=== PATIENT | female | born 1995 ===

== ENCOUNTER 2017-04-24 18:26 | Emergency (ER) | payer OTHER ==
[2017-04-24 18:27] VITALS: BMI 25.7
[2017-04-24 18:34] VITALS: RESP 18
--- NOTE | 2017-04-24 18:50 | C.PDOC ---
Time Seen by Provider: 04/24/17 18:41 Chief Complaint (Nursing): Abnormal Skin Integrity Past Medical History Vital Signs: Last Vital Signs Temp 101.2 F H 04/24/17 18:30 Pulse 100 H 04/24/17 18:30 Resp 18 04/24/17 18:30 BP 115/78 04/24/17 18:30 Pulse Ox 100 04/24/17 18:30 - Social History Hx Alcohol Use: No Hx Substance Use: No ED Course And Treatment O2 Sat by Pulse Oximetry: 100 Pulse Ox Interpretation: Normal Progress Note: At 18:50, Podiatry resident called, will see pt in ED. reqeusted xray of Left foot. Disposition - Disposition Forms: [employer] (Montenegrin)
--- NOTE | 2017-04-24 18:52 | C.PDOC ---
History Of Present Illness A 22 year old female, who denies any significant past medial history, presents to the emergency department 4 days after stepping on a sea urchin with her left foot while on vacation in [place]. The patient notes she had spines that were stuck in her left big toe, only 3 spines remain. The patient also reports to feeling sick with nasal congestion, sore throat, and a fever, for the last two days. The patient denies lethargy, drooling, dysphagia, dyspnea, SON, throat tightness, abd. pain, N/V/D, UTI sx, denies swelling to her left foot, wound draining, weakness, sensory or vascular deficits. Ambulate to ED for evaluation, not in any apparent distress. Time Seen by Provider: 04/24/17 18:41 Chief Complaint (Nursing): Abnormal Skin Integrity History Per: Patient History/Exam Limitations: no limitations Onset/Duration Of Symptoms: Days (x 4 days ) Past Medical History Vital Signs: Last Vital Signs Temp 98.4 F 04/24/17 20:59 Pulse 76 04/24/17 20:59 Resp 18 04/24/17 20:59 BP 104/67 04/24/17 20:59 Pulse Ox 99 04/24/17 20:59 Family History: States: No Known Family Hx - Social History Hx Alcohol Use: No Hx Substance Use: No Review Of Systems Except As Marked, All Systems Reviewed And Found Negative. Constitutional: Positive for: Fever ENT: Positive for: Nose Congestion, Throat Pain Cardiovascular: Negative for: Chest Pain Respiratory: Negative for: Shortness of Breath Gastrointestinal: Negative for: Nausea, Abdominal Pain Skin: Positive for: Other (3 spines from sea urchin ) Physical Exam - Physical Exam Appears: Well, Non-toxic, No Acute Distress Skin: Normal Color, Warm, Dry Eye(s): bilateral: PERRL Nose: No Flaring, No Discharge Oral Mucosa: Moist Tongue: Normal Appearing Lips: Normal Appearing Throat: Erythema (pharyngeal erythema with mild edema; no exudate), No Exudate, No Drooling Neck: Supple Lymphatic: Adenopathy (mild tenderness submandibular) Cardiovascular: Rhythm Regular Respiratory: No Decreased Breath Sounds, No Accessory Muscle Use, No Rales, No Rhonchi, No Stridor, No Wheezing Gastrointestinal/Abdominal: Soft, No Tenderness, No Distention, No Guarding Back: No CVA Tenderness Extremity: Tenderness (mild tenderness over plantar aspect Left 1st distal phalanx, small punctate FB#3 noted. No edema, n oerythema, no wound draining.), Capillary Refill (less than 2sec to Left foot), No Deformity, No Swelling Neurological/Psych: Oriented x3, Normal Speech, Normal Motor, Normal Sensation, Normal Reflexes ED Course And Treatment - Laboratory Results Result Diagrams: 04/24/17 20:18 04/24/17 20:18 Lab Interpretation: No Acute Changes O2 Sat by Pulse Oximetry: 100 Pulse Ox Interpretation: Normal Medical Decision Making Medical Decision Making: Treatment Plan: -- Tylenol, Cleocin, Prednisone -- test -- Left Foot Radiology -- Urinalysis Progress Notes: At 18:50, Podiatry resident called, will see pt in ED. Requested xray of Left foot. AT 20:05, [facility] resident arrived and pt was evaluated. Case discussed with [facility] -on-call and discharge with outpt f/u recommend at present time. Pt was OBS in ED for 2.5 hours and reports moderate improvement in sx. Afebrile, hemodynamicaly stable. non-toxic.Tolerate Po well in ED. PulsEOx 100% RA ENT: exam c/w acute pharyngitis. uvula midline, no edema. neck: Supple, (-) JVD. Lungs: CTA B/L, BS equal B/L. CVS: (+)S1S2, reg. Abd: benign. Skin: Left foot big toe exam c/w FB, no evidence of cellulites or abscess. FAROM of LLE, no neurovascular deficits. Pt advised on course of ds. ref. to f/u with [facility] in 1-2 days for re-evaluation. Return to ED if any worsening or new changes. Disposition Counseled Patient/Family Regarding: Studies Performed, Diagnosis, Need For Followup, Rx Given - Disposition Referrals: [facility] [Outside] Disposition: HOME/ ROUTINE Disposition Time: 20:39 Condition: STABLE Additional Instructions: Encourage fluids Take medication as prescribed Follow up with [facility] in Clinic Tuesday AM ( [place], [facility]) and Tuesday ( [place]) in 2-3 days for re-evaluation. Return to ED if any worsening or new changes. Prescriptions: Clindamycin [Cleocin] 300 mg PO Q6 #28 cap Prednisone [Deltasone] 20 mg PO DAILY #3 tablet Instructions: Soft Tissue Foreign Body (ED), Pharyngitis (ED) Forms: [employer] (Croatian) - Clinical Impression Clinical Impression: Pharyngitis, Foreign body (FB) in soft tissue - Scribe Statement The provider has reviewed the documentation as recorded by the Scribe Nayla Fuentes All medical record entries made by the Scribe were at my direction and personally dictated by me. I have reviewed the chart and agree that the record accurately reflects my personal performance of the history, physical exam, medical decision making, and the department course for this patient. I have also personally directed, reviewed, and agree with the discharge instructions and disposition.
[2017-04-24 19:07] LABS: RBC URINE 1 /hpf (0-3); URINE BILIRUBIN NEGATIVE (NEGATIVE); URINE BLOOD NEGATIVE (NEGATIVE); URINE COLOR Yellow (YELLOW); URINE GLUCOSE (UA) NORMAL (Normal); URINE KETONE 1+ mg/dL (NEGATIVE); URINE LEUKOCYTE ESTERASE NEG Leu/uL (Negative); URINE PROTEIN NEGATIVE (NEGATIVE); WBC URINE 1 /hpf (0-5)
[2017-04-24] MEDS ORDERED: Sodium Chloride 0.9% 1,000 ML IV ONE (19:44)
[2017-04-24 20:26] LABS: BASO % 0.3 % (0.0-2.0); EOS % 0.1 % (0.0-4.0); HEMATOCRIT 42.2 % (34.0-47.0); LYMPH # 0.7 K/uL (1.0-4.3); LYMPH % 8.9 % (20.0-40.0); MEAN CELL VOLUME 92.2 fL (81.0-99.0); MEAN CORPUSCULAR HEMOGLOBIN 31.8 pg (27.0-31.0); MEAN CORPUSCULAR HGB CONC 34.4 g/dL (33.0-37.0); MEAN PLATELET VOLUME 7.5 fL (7.2-11.7); MONO # 0.8 K/uL (0.0-0.8); MONO % 10.7 % (0.0-10.0); PLATELET COUNT 223 K/uL (130-400); RED CELL DISTRIBUTION WIDTH 12.9 % (11.5-14.5); WHITE BLOOD COUNT 7.3 K/uL (4.8-10.8)
[2017-04-24 20:36] LABS: BLOOD UREA NITROGEN 9 mg/dL (7-17); CALCIUM 9.4 mg/dl (8.6-10.4); CARBON DIOXIDE 25 mmol/L (22-30); CHLORIDE 95 mmol/L (98-107); GFR AFRICAN-AMERICAN > 60; GLUCOSE,RANDOM 94 mg/dL (65-105); POTASSIUM 3.7 mmol/L (3.6-5.2); SODIUM 135 mmol/L (132-148)
[2017-04-24 20:59] VITALS: BP 104/67; PULSE 76; TEMP 98.4
[2017-04-24 20:59] LABS: LARGE PLATELETS PRESENT; NEUTROPHIL 72 % (50-75); TOTAL CELLS COUNTED 100
--- NOTE | 2017-04-24 21:44 | CP.PCM.CON ---
History of Present Illness - History of Present Illness History of Present Illness: 22 y/o female who denies any significant past medical history seen in ED for pain and concern for her left big toe. Patient states she stepped on a sea urchin 5 days ago in [place] and got some of the spines stuck in her toe. Patient removed some of them but others were too deep. Patient admits that the toe had some swelling and bleeding at the time but has since subsided. Patient has been experiencing mild constitutional symptoms such as fever and chills today, and is also feeling cold-like symptoms for 2 days including sore throat and congestion. Patient states these symptoms are consistent with her common cold symptoms seasonally. Patient admits to vomiting once yesterday. Patient denies any nausea or shortness of breath. Patient has not noticed any breaks in the skin or any drainage from the toe. Patient states she has a little pain when she presses off on the toe or presses hard down on it. Review of Systems - Review of Systems All systems: reviewed and no additional remarkable complaints except (per HPI) Past Patient History - Infectious Disease Hx of Infectious Diseases: None - Past Social History Smoking Status: Never Smoked - PSYCHIATRIC Hx Substance Use: No - SURGICAL HISTORY Hx Surgeries: No - ANESTHESIA Hx Anesthesia: No Meds Home Medications: Home Medication List Medication Instructions Recorded Confirmed Type Clindamycin [Cleocin] 300 mg PO Q6 #28 cap 04/24/17 Rx Prednisone [Deltasone] 20 mg PO DAILY #3 tablet 04/24/17 Rx Allergies/Adverse Reactions: Allergies Allergy/AdvReac Type Severity Reaction Status Date / Time No Known Allergies Allergy Verified 04/24/17 18:34 Physical Exam - Constitutional Appears: Well, Non-toxic, No Acute Distress - Extremities Exam Additional comments: Left lower extremity focused examination: Vasc: DP/PT pulses palpable 2/4.CFT < 3 sec x 5 digits. Temperature gradient warm to cool. No pedal edema. Derm: 4 pinpoint black foreign bodies noted to distal aspect of hallux. No surrounding erythema, no breaks in skin, no drainage, no malodor, no cellulitic changes, no clinical signs of infection noted Neuro: Protective sensation grossly intact Ortho: No tenderness upon palpation to hallux - Neurological Exam Neurological exam: Alert, Oriented x3 - Psychiatric Exam Psychiatric exam: Normal Affect, Normal Mood Results - Vital Signs Recent Vital Signs: Last Vital Signs Temp 98.4 F 04/24/17 20:59 Pulse 76 04/24/17 20:59 Resp 18 04/24/17 20:59 BP 104/67 04/24/17 20:59 Pulse Ox 99 04/24/17 20:59 - Labs Result Diagrams: 04/24/17 20:18 04/24/17 20:18 Labs: Laboratory Results - last 24 hr 04/24/17 04/24/17 04/24/17 18:58 20:18 20:18 WBC 7.3 RBC 4.58 Hgb 14.5 Hct 42.2 MCV 92.2 MCH 31.8 H MCHC 34.4 RDW 12.9 Plt Count 223 MPV 7.5 Neut % (Auto) 80.0 H Lymph % (Auto) 8.9 L [place] % (Auto) 10.7 H Eos % (Auto) 0.1 Baso % (Auto) 0.3 Neut # 5.8 Lymph # 0.7 L [place] # 0.8 Eos # 0.0 Baso # 0.0 Neutrophils % (Manual) 72 Band Neutrophils % 4 H Lymphocytes % (Manual) 13 L Monocytes % (Manual) 11 H Platelet Estimate Normal Large Platelets Present Sodium 135 Potassium 3.7 Chloride 95 L Carbon Dioxide 25 Anion Gap 19 BUN 9 Creatinine 0.5 L Est GFR ( Amer) > 60 Est GFR (Non-Af Amer) > 60 Random Glucose 94 Calcium 9.4 Urine Color Yellow Urine Clarity Clear Urine pH 6.0 Ur Specific [place] 1.023 Urine Protein Negative Urine Glucose (UA) Normal Urine Ketones 1+ H Urine Blood Negative Urine Nitrate Negative Urine Bilirubin Negative Urine Urobilinogen 2.0 H Ur Leukocyte Esterase Neg Urine WBC (Auto) 1 Urine RBC (Auto) 1 Ur Squamous Epith Cells 3 Assessment & Plan - Assessment and Plan (Free Text) Assessment: 22 y/o female with foreign body in left great toe Plan: Pt seen and evaluated in ED Discussed plan in detail with attending Dr. Rangel Labs and vitals reviewed: T 101.4, WBC 7.3 Patient informed that due to no clinical signs of skin or soft tissue infection at this time, the remaining foreign body can be left in the toe and will eventually come out on their own Patient recommended warm vinegar soaks to loosen the foreign body and help it come out of the toe Patient to monitor the toe closely for signs of redness, swelling, or drainage - if any occur, pt to return to ED immediately Pt recommended to follow up with podiatry at [facility] Thank you for this consult
--- NOTE | 2017-04-25 08:09 | RAD ---
PROCEDURE: Left Foot Radiographs. HISTORY: FB COMPARISON: None. FINDINGS: BONES: Normal. No fracture. No suspicious lytic or blastic change. JOINTS: Normal. SOFT TISSUES: No retained radiodense foreign body is appreciated. This includes the digits diffusely. OTHER FINDINGS: None. IMPRESSION: Normal left foot radiographs. A retained radiodense foreign body identified throughout.
[2017-04-25 12:38] VITALS: O2SAT 100
== END 2017-04-24 21:00 | disposition home or self-care (01) ==
LOC: C.ER 18:26
DX: S90.852A Superficial foreign body, left foot, initial encounter (principal); W26.8XXA Contact with other sharp object(s), not elsewhere classified, initial encounter; Y93.89 Activity, other specified; Y92.89 Other specified places as the place of occurrence of the external cause; J02.9 Acute pharyngitis, unspecified; Z23 Encounter for immunization
CPT/HCPCS: 73630; 80048; 81001; 85025; 87040; 90471; 90715; 96360; 99284; J7040